=== PATIENT | female | born 1990 | race Caucasian/White ===

== ENCOUNTER 2020-12-02 22:52 | Emergency (ER) | payer OTHER ==
[2020-12-02 23:01] VITALS: TEMP 98
[2020-12-02] MEDS ORDERED: MORPHINE SULFATE 2 MG/ML SYRINGE IVP ONE (23:59)
--- NOTE | 2020-12-03 00:14 | ED ---
Lower Extremity Injury HPI - General Chief Complaint: Extremity Injury, Lower Stated Complaint: Rt knee pain Time Seen by Provider: 12/02/20 23:54 Source: patient, RN notes reviewed Mode of arrival: wheelchair Limitations: no limitations - History of Present Illness Initial Comments: Patient is a 30-year-old female that presents to the emergency department complaining of right knee pain she notes that she has had extensive for noted in her right ankle after an accident several years ago. She notes that she hasn't eaten and played on the lateral aspect of her right lower leg. She notes that since about she was in the shower when she twisted and then felt a cracking noise. Since then she has had constant pain is unrelieved with any nestor e pain medication patient as the pain is a 6 out of 10 currently unrelieved constant. She notes that she is able to walk but limp. She is not follow-up with orthopedic surgeon in several years. She denied any weakness numbness tingling fever fatigue chills chest pain shortness of breath headache nausea vomiting diarrhea constipation. - Related Data Allergies Allergy/AdvReac Type Severity Reaction Status Date / Time aripiprazole AdvReac Unknown Verified 12/02/20 22:59 Review of Systems ROS Statement: Those systems with pertinent positive or pertinent negative responses have been documented in the HPI. ROS Other: All systems not noted in ROS Statement are negative. Past Medical History Past Medical History: No Reported History Additional Past Medical History / Comment(s): hydrocephalus, History of Any Multi-Drug Resistant Organisms: None Reported Additional Past Surgical History / Comment(s): shunt, surgery on left hand, right ankle repair, Past Psychological History: No Psychological Hx Reported Smoking Status: Current every day smoker Past Alcohol Use History: None Reported Past Drug Use History: None Reported General Exam Limitations: no limitations General appearance: alert, in no apparent distress, obese Head exam: Present: atraumatic, normocephalic, normal inspection Eye exam: Present: normal appearance, PERRL, EOMI. Absent: scleral icterus, conjunctival injection, periorbital swelling Neck exam: Present: normal inspection. Absent: tenderness, meningismus, lymphadenopathy Respiratory exam: Present: normal lung sounds bilaterally. Absent: respiratory distress, wheezes, rales, rhonchi, stridor Cardiovascular Exam: Present: regular rate, normal rhythm, normal heart sounds, other (Bilateral pedal pulses are 2+). Absent: systolic murmur, diastolic murmur, rubs, gallop, clicks GI/Abdominal exam: Present: soft, normal bowel sounds. Absent: distended, tenderness, guarding, rebound, rigid Extremities exam: Present: normal inspection, tenderness (Medial aspect of right knee to light palpation.), normal capillary refill. Absent: full ROM (Decreased range of motion of right leg due to pain.), pedal edema, joint swelling, calf tenderness Neurological exam: Present: alert, oriented X3, CN II-XII intact Psychiatric exam: Present: normal affect, normal mood Skin exam: Present: warm, dry, intact, normal color. Absent: rash Course Vital Signs 12/02/20 12/03/20 22:55 00:35 Temperature 98.0 F Pulse Rate 110 H Respiratory 17 Rate Blood Pressure 129/75 137/91 O2 Sat by Pulse 98 Oximetry Medical Decision Making - Medical Decision Making 30-year-old female complaining of right knee pain. Right knee x-ray and right tib-fib x-ray ordered. 4 mg of morphine given for pain. X-rays were negative for any acute fractures or orthopedic hardware displacement. Case discussed with Dr. Reyna, it side patient to discharge home with close follow-up with orthopedic. - Radiology Data Radiology results: report reviewed, image reviewed Right knee x-ray: Mild to moderate osteoarthritic changes about the right knee joint, right knee joint effusion, MRI of the right knee suggested for follow-up. No acute fracture dislocation. Tib-fib x-ray: Normal anatomic alignment, orthopedic hardware noted in place about the distal right tibia and fibula about the right ankle joint. Disposition Clinical Impression: Right knee pain, Effusion of right knee joint Disposition: HOME SELF-CARE Condition: Stable Instructions (If sedation given, give patient instructions): Knee Pain (ED) Additional Instructions: Please return to the Emergency Department if symptoms worsen or any other concerns. Follow-up primary care in 2-4 days. Follow-up with orthopedist as soon as possible. Take [id number] pain medication as needed for pain management. Rest ice elevate compress as needed for pain management Work note given. Is patient prescribed a controlled substance at d/c from ED?: No Referrals: None,Stated [Primary Care Provider] - 1-2 days Time of Disposition: 01:08
[2020-12-03] MEDS ORDERED: MORPHINE SULFATE 2 MG/ML SYRINGE IM STA (00:31)
--- NOTE | 2020-12-03 00:39 | XR ---
EXAM: XR Right Tibia and Fibula, 2 Views CLINICAL HISTORY: Right fleming pain. TECHNIQUE: Frontal and lateral views of the right tibia and fibula. COMPARISON: No previous studies. FINDINGS: Bones/joints: Orthopedic hardware is noted in place at the distal right fibula and tibia. Proximal right tibia fibular unremarkable. No acute fracture. No dislocation. Soft tissues: The soft tissues are grossly unremarkable per No radiopaque foreign body. Other findings: Normal anatomic alignment. IMPRESSION: 1. Orthopedic hardware noted in place about the distal right tibia- fibula about the ankle joint. 2. Normal anatomic alignment. 3. If there is concern for cellulitis or osteomyelitis, magnetic resonance imaging should be performed.
--- NOTE | 2020-12-03 00:41 | XR ---
EXAM: XR Right Knee, 3 Views CLINICAL HISTORY: ITS.REASON XR Reason: pain TECHNIQUE: Three views of the right knee. COMPARISON: No previous studies. FINDINGS: Bones/joints: Mild to moderate osteoarthritic changes about the right knee joint. 1.7 cm benign exostosis noted arising from the lateral cortex of the medial femoral condyle. Small to moderate knee joint effusion. No acute fracture or dislocation. Soft tissues: The soft tissues are unremarkable. IMPRESSION: 1. Mild to moderate osteoarthritic changes about the right knee joint. 2. Right knee joint effusion. 3. Magnetic resonance imaging of the right knee joint is suggested for follow-up. 4. Benign exostosis arising from the medial femoral condyle. 5. No acute fracture or dislocation.
[2020-12-03 03:09] VITALS: BP 106/84; PULSE 82; RESP 16
== END 2020-12-03 01:45 | disposition home or self-care (01) ==
LOC: EC 22:52
DX: M25.461 Effusion, right knee (principal); F17.200 Nicotine dependence, unspecified, uncomplicated
CPT/HCPCS: 73590; 73562; 99283; 96374; 96372; J2270

== ENCOUNTER → 2023-11-10 | Outpatient (CLI) | payer BC, OTHER ==
--- NOTE | 2023-11-10 18:59 | CT ---
EXAMINATION TYPE: CT abdomen pelvis w con DATE OF EXAM: 11/10/2023 COMPARISON: None HISTORY: Umbilical hernia without obstruction or gangrene. CT DLP: 1994 mGycm Automated exposure control for dose reduction was used. TECHNIQUE: Helical acquisition of images was performed from the lung bases through the pelvis. CONTRAST: Performed with Oral Contrast and with IV Contrast, patient injected with 100 mL of Isovue 300. FINDINGS: The lung bases are clear. The gallbladder is normal without distention, wall thickening, pericholecystic fluid or gallstones. T here is no biliary ductal dilatation. There is no focal mass or organomegaly involving the liver, pancreas, spleen or adrenal glands. There is no solid renal mass or hydronephrosis and there is homogeneous contrast enhancement of the r enal parenchyma. The caliber the abdominal aorta is normal is no retroperitoneal adenopathy or hemorr mary. The bowel loops are normal in caliber and there is no evidence of dilatation or obstruction. No infla mmatory changes are identified in the bowel wall or mesentery. There is no free intraperitoneal air or fluid. No pelvic mass, free fluid, abscess or adenopathy. Osseous structures are intact. There is a periumbilical hernia containing fat but no bowel loops. IMPRESSION: 1. Periumbilical hernia containing fat but no bowel loops. 2. No other significant amount is seen. IMPRESSION: No significant abnormality seen.
== END | disposition home or self-care (01) ==
LOC: RADCTMAIN 15:29
PROVIDERS: ATTEND Family Medicine
DX: K42.9 Umbilical hernia without obstruction or gangrene (principal)
CPT/HCPCS: 74177; Q9967